=== PATIENT | female | born 1950 | race Caucasian/White ===

== ENCOUNTER 2020-04-21 08:56 | Outpatient (CLI) | payer MEDICARE, OTHER ==
--- NOTE | 2020-04-21 10:05 | SLEEP CARE CONSULTATION ---
Information from patient questionnaire entered by Emily Jordan. I have reviewed and concur with the information entered by Emily Jordan. This document represents the service I personally performed and the decisions made by , Crys Mack ARNP. History of Present Illness Service Date and Time: 04/21/2020 0856 Reason for Visit: New patient, Previously diagnosed sleep apnea, sleep apnea on CPAP therapy Chief Complaint: reports: Other (sleep apnea, transferring care and CPAP check) Usual bedtime: 10:30 pm Time it takes to fall asleep: 10-30 mins Snores at night: Yes Observed to quit breathing while asleep: Yes Number of times waking at night: 2-3 with CPAP Reasons for waking at night: reports: Gasping for air (if mask comes off), Bathroom Toss, Turn, or Twitch while sleeping: No Recalls having dreams: Yes Usually gets out of bed at: 6:30 am Feels refreshed in the morning: Yes (usually) Morning headache: No Sleepy or fatigued during the day: Yes (sometimes) Ever fallen asleep while driving: No Takes day naps: No Prior sleep studies: Yes Year and Where: 2011 - [facility] Additional HPI information: NARAYAN MARQUEZ was diagnosed to have unkown, AHI unknown, obstructive sleep apnea-hypopnea syndrome and returned today for CPAP therapy establishment of care. - Parasomnia Symptoms Ever been unable to move upon waking from sleep: No Walks in sleep: No Talks in sleep: No Ever acted out dreams in sleep: No Ever felt weak in the knees when startled or emotional: No Bothered by creepy, crawly, restless sensations in legs: No Problems with memory or concentration: No CPAP Compliance Data - Data Reviewed with Patient Average duration of nightly device use: 5 hours 9 minutes Compliance rate %: 80 Current pressure setting (cmH2O): 5-15 Average residual AHI: 3.1 Central apnea: 0.3 Obstructive apnea: 1.8 Average large leak: 21.6 L/min Compliance data discussion: She is getting equipment and supplies from [employer] as needed. She is using a full face mask and she last changed it out 1 week ago. She does have a backup mask. Subjective Patient concerns: reports: mask discomfort (some skin irritation from mask and drooling in mask). denies: aerophagia, air blowing in eyes, mask leak noise, condensation in mask/hose, nasal congestion, dry mouth, nose, throat, epistaxis, other Observed to snore while using device: No Current pressure setting perceived as: comfortable On therapy, patient: reports: sleeping better, awakening more refreshed, being more awake and alert during the day, more rested overall. denies: drowsiness while driving Initial [place] Sleepiness Scale score: 3 (in 2019) Past Medical History Past Medical History: reports: Arthritis, Hypothyroidism, Anemia, Other (sleep apnea, kidney disease, osteoporosis, hearing loss, celiac disease). 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 Patient is and lives in [place]. Have you smoked in the past 12 months: No Alcohol use: No Caffeine use: Yes Caffeine amount and frequency: 2 drinks a week, tea Family History Family history of sleep disordered breathing: Yes (father, son, daughter) Family Hx Sleep Apnea: Father: Snoring, Sleep apnea - Treated Allergies and Home Medications Drug allergies reviewed: Yes (Sulfa) Home medication list reviewed: Yes Allergy and home medication list: hydroxychloroquine 200 mg (2) methtrexate 2.5 mg (6 per week) Folic acid (1) probiotic Calcium/Vit D/Magnesium Thyroid 60 mg (1) Alendronate sodium 70 mg (1 week) Review of Systems Cardiovascular: denies: high blood pressure, irregular heart rate or pulse Respiratory: denies: shortness of breath Gastrointestinal: denies: heartburn, difficulty swallowing Neurological: denies: headaches Psychiatric: reports: claustrophobia. denies: anxiety, depression Ear/Nose/Throat: reports: wisdom teeth removed. denies: nasal congestion, sinus problems, nose bleeds, dry mouth/throat, injury to nose, tonsillectomy Endocrine: reports: thyroid disease Musculoskeletal: reports: joint pain, back pain Immunologic: reports: rash, itching, allergies to food or environment (gluten) Physical Exam Blood Pressure: 140/79 Cuff size: long Heart Rate: 79 O2 Saturation: 99 Height: 5 ft 5 in Weight: 168 lb Body Mass Index: 27.9 BMI Classification: Overweight Neck circumference: 14.45 (inches) Nostrils: patent to airflow Turbinates: swollen Septum: deviated left Mouth and throat: narrow oropharynx Uvula visualization: 50% Mallampati Class II Tongue: normal in size Tonsils: 2+ Chin and jaw: normal size and position Neck: normal w/o lymphadenopathy or thyromegaly Heart: regular rate and rhythm Lungs: clear bilaterally Impression and Plan 1. Obstructive Sleep Apnea-Hypopnea Syndrome, unknown, with good treatment compliance and good apnea control. On CPAP therapy, the patient has better sleep quality and is more rested overall. She just moved into area and needs to establish care for her CPAP therapy. We were able to download information from a SD card inserted into her machine and she is compliant in last 30 download. We need to obtain copy of her last sleep study to verify diagnosis and severity. She has been using pressure range 5-15 cmH2O according to her download which also shows that she is using median 8.8 cmH2O, 95% 13.1 cmH2O and max 14.4 cmH2O. Thus, I will adjust her pressure range to 9-14 to accommodate for her pressure usage. She has had some issues with skin irritation around her mouth from the mask. I advised her to obtain a mask liner for her full face mask to have a barrier between the mask and her skin to reduce irritation. She voiced understanding. Patient's apnea severity and rationale for treatment to reduce apnea, improve sleep quality and reduce cardiovascular and cerebrovascular events was reviewed. * Obtain last sleep study to verify diagnosis and severity * Change autoCPAP pressure to 9-14 cmH2O * Obtain mask liners to reduce skin irritation from the mask * Notify me if snoring with mask or feeling that the pressure is too much or too little * Attempt to lose weight * Call this office if any problems using CPAP * Return for follow up in 1-2 months, or sooner if concerns arise Counseling Topics: Spare mask, Weight loss health impact Visit Type: In Office Time Spent with Patient (minutes): 38 Provider Statement: I spent 100% of the Face to Face Visit with the patient with greater than 50% spent counseling the patient and coordination of care.
[2020-04-21 10:12] VITALS: BP 140/79
== END 2020-04-21 08:57 | disposition home or self-care (01) ==
LOC: SC 08:56
PROVIDERS: ATTEND Nurse Practitioner Family
DX: G47.33 Obstructive sleep apnea (adult) (pediatric) (principal)
CPT/HCPCS: 99204; 99212

== ENCOUNTER 2020-04-21 10:30 | Outpatient (CLI) | payer MEDICARE, OTHER ==
[2020-04-21 11:00] LABS: BASOPHILS % (AUTO) 0.7 %; EOSINOPHILS # (AUTO) 0.1 10^3/uL (0.0-0.7); EOSINOPHILS % (AUTO) 0.9 %; HGB - HEMOGLOBIN 12.7 g/dL (12.0-16.0); LYMPHOCYTES # (AUTO) 1.3 10^3/uL (1.5-3.5); LYMPHOCYTES % (AUTO) 22.9 %; MEAN CORPUSCULAR HGB CONC 31.8 g/dL (32.0-36.0); MEAN CORPUSCULAR VOLUME 94.3 fL (81.0-99.0); MEAN PLATELET VOLUME 10.5 fL (7.9-10.8); MONOCYTES # (AUTO) 0.5 10^3/uL (0.0-1.0); MONOCYTES % (AUTO) 9.3 %; NEUTROPHILS # (AUTO) 3.7 10^3/uL (1.5-6.6); PLT - PLATELET COUNT 237 10^3/uL (130-450); RED BLOOD COUNT 4.24 10^6/uL (4.20-5.40); WHITE BLOOD COUNT 5.7 x10^3/uL (4.8-10.8)
[2020-04-21 11:18] LABS: ALBUMIN 4.4 g/dL (3.2-5.5); ALBUMIN/GLOBULIN RATIO 1.4 (1.0-2.2); ALKALINE PHOSPHATASE 49 IU/L (42-121); ALT ALANINE AMINOTRANSFERASE 19 IU/L (10-60); AST ASPARTATE AMINOTRANSFERASE 18 IU/L (10-42); BILIRUBIN,TOTAL 0.6 mg/dL (0.2-1.0); BUN - BLOOD UREA NITROGEN 21 mg/dL (6-20); CALCIUM 9.3 mg/dL (8.5-10.3); CARBON DIOXIDE - CO2 26 mmol/L (21-32); CHLORIDE 100 mmol/L (101-111); CREATININE 1.4 mg/dL (0.4-1.0); GLUCOSE 138 mg/dL (70-100); SODIUM 136 mmol/L (135-145); TOTAL PROTEIN 7.5 g/dL (6.7-8.2)
[2020-04-21 11:25] LABS: CRP - C-REACTIVE PROTEIN < 1.0 mg/dL (0-1.0)
== END 2020-04-21 10:31 | disposition home or self-care (01) ==
LOC: LAB 10:30
PROVIDERS: ATTEND Nurse Practitioner
DX: Q60.0 Renal agenesis, unilateral (principal); N28.9 Disorder of kidney and ureter, unspecified; E03.9 Hypothyroidism, unspecified; M06.9 Rheumatoid arthritis, unspecified; Z79.899 Other long term (current) drug therapy
CPT/HCPCS: 36415; 80053; 84443; 85025; 85651; 86140

== ENCOUNTER 2020-04-21 11:00 | Outpatient (CLI) | payer MEDICARE, OTHER ==
--- NOTE | 2020-04-21 11:33 | XRAY Report ---
PROCEDURE: Foot 2 View BILAT INDICATIONS: RHEUMATOID ARTHRITIS BILAT FOOT PAIN TECHNIQUE: 2 views of both feet were obtained. COMPARISON: None FINDINGS: Bones: Both feet demonstrate no fracture or dislocation. There are no erosions or proliferative blevins es. The interphalangeal joints have mild joint space narrowing consistent with degenerative changes. Soft tissues: No tibiotalar joint effusion. Achilles tendon appears normal. IMPRESSION: No radiographic evidence of inflammatory arthropathy. Reviewed by: Pierre Muñoz on 04/21/2020 11:32 AM [facility] Approved by: Pierre Muñoz on 04/21/2020 11:32 AM [facility] Station ID: [id number]
--- NOTE | 2020-04-21 11:45 | XRAY Report ---
PROCEDURE: Hand 2 View BILAT INDICATIONS: RHEUMATOID ARTHRITIS/BILAT HAND PAIN TECHNIQUE: 2 views of both hands were obtained. COMPARISON: None FINDINGS: Bones: Both hands demonstrate joint space narrowing of the metacarpophalangeal joints, interphalangea l joints most severe in the proximal interphalangeal joints. There is subchondral sclerosis and chelsea nal erosions at multiple DIP joints bilaterally. The thumb carpometacarpal joints and the thumb inter phalangeal joint have degenerative changes, worse on the right. Soft tissues: No suspicious soft tissue calcifications. IMPRESSION: Arthropathy prominently involving the interphalangeal joints in a distribution most consi stent with erosive osteoarthritis or psoriatic arthritis. Marginal erosions suggest psoriatic arthrit is. Reviewed by: Pierre Muñoz on 04/21/2020 11:43 AM [facility] Approved by: Pierre Muñoz on 04/21/2020 11:43 AM [facility] Station ID: [id number]
== END 2020-04-21 11:01 | disposition home or self-care (01) ==
LOC: DI 11:00
PROVIDERS: ATTEND Internal Medicine Rheumatology
DX: M79.672 Pain in left foot (principal); M79.671 Pain in right foot; M06.9 Rheumatoid arthritis, unspecified; M19.041 Primary osteoarthritis, right hand; M19.042 Primary osteoarthritis, left hand; Q60.0 Renal agenesis, unilateral; N28.9 Disorder of kidney and ureter, unspecified; E03.9 Hypothyroidism, unspecified; Z79.899 Other long term (current) drug therapy; G47.33 Obstructive sleep apnea (adult) (pediatric)
CPT/HCPCS: 36415; 73120; 73620; 80053; 84443; 85025; 85651; 86140; 99204; G0463; 99212

== ENCOUNTER 2020-04-29 07:45 | Outpatient (CLI) | payer MEDICARE, OTHER ==
--- NOTE | 2020-04-29 14:05 | Ultrasound Report ---
PROCEDURE: Retroperitoneal INDICATIONS: SINGLE KIDNEY, RENAL INSUFFICIENCY, history of right nephrectomy 2 years ago. TECHNIQUE: Real-time scanning was performed of the retroperitoneal organs, with image documentation. COMPARISON: None. FINDINGS: Kidneys: Solitary left kidney measures 12 cm. Cortex 1.2 cm.. No hydronephrosis. There is a nonobstru cting calculus at the mid pole measuring 5 mm. Small simple cyst at the inferior pole measuring 0.9 c m. No mass in the region of the right nephrectomy bed is seen. Bladder: Volume 12 cc. Post void residual of 0 cc. Left ureteral jet is seen. IMPRESSION: 1. No hydronephrosis of the left kidney. Nonobstructing left kidney stone measuring 5 mm. 2. No obvious mass in the right nephrectomy bed. Reviewed by: Rodolfo Viveros MD on 04/29/2020 1:04 PM [facility] Approved by: Rodolfo Viveros MD on 04/29/2020 1:04 PM [facility] Station ID: [id number]
== END 2020-04-29 07:46 | disposition home or self-care (01) ==
LOC: DI 07:45
PROVIDERS: ATTEND Nurse Practitioner
DX: N20.0 Calculus of kidney (principal); N28.9 Disorder of kidney and ureter, unspecified; Q60.0 Renal agenesis, unilateral

== ENCOUNTER 2020-05-23 08:21 | Outpatient (CLI) | payer MEDICARE, OTHER ==
--- NOTE | 2020-05-23 08:55 | SLEEP CARE CONSULTATION ---
Information from patient questionnaire entered by Emily Jordan. I have reviewed and concur with the information entered by Emily Jordan. This document represents the service I personally performed and the decisions made by , Crys Mack ARNP. History of Present Illness Service Date and Time: 05/23/2020 08 Previous diagnosis: Severe, Obstructive Sleep Apnea-Hypopnea Syndrome AHI: 38.7 (in 2018) Reason for follow up: one month (with pressure change) Equipment type: CPAP Equipment obtained from: [employer] [facility] Mask style: Full face Backup mask available: Yes (old mask) Last cushion change: 12 days ago Prior sleep studies: Yes Year and Where: 2011 [facility] Type of Sleep Study: Home sleep study HPI additional information: NARAYAN MARQUEZ was diagnosed to have severe, AHI 38.7, obstructive sleep apnea- hypopnea syndrome and returned today for CPAP therapy one month pressure change follow-up. CPAP Compliance Data - Data Reviewed with Patient Average duration of nightly device use: 5 hr 38 min Compliance rate %: 90 Current pressure setting (cmH2O): 9-14 Humidity settin Average residual AHI: 8.0 Central apnea: 0.4 Obstructive apnea: 5.9 Subjective Patient concerns: denies: aerophagia, mask discomfort, air blowing in eyes, mask leak noise, condensation in mask/hose, nasal congestion, dry mouth, nose, throat, epistaxis, other Observed to snore while using device: No Current pressure setting perceived as: comfortable On therapy, patient: reports: sleeping better, awakening more refreshed, being more awake and alert during the day, more rested overall. denies: drowsiness while driving Initial [place] Sleepiness Scale score: 3 (in 2019) Current [place] Sleepiness Scale score: 1 Allergies and Home Medications Drug allergies reviewed: Yes (sulfa) Home medication list reviewed: Yes (off the methotrexate) Review of Systems Review of systems same as previous: Yes (no changes) Physical Exam Heart Rate: 77 O2 Saturation: 99 Height: 5 ft 5 in Weight: 172 lb Body Mass Index: 28.6 BMI Classification: Overweight Impression and Plan 1. Obstructive Sleep Apnea-Hypopnea Syndrome, severe, with good treatment compliance and fair apnea control with an elevated residual AHI. On CPAP therapy, the patient has better sleep quality and is more rested overall. She has found the mask liners to reduce the skin irritation and she is now doing well with the mask. She has no other concerns about use of her machine. She has some elevated residual AHI with last change of pressure. The patients pressure will be changed to autoCPAP 11-15 cmH20 For elevation of residual AHI. Patient advised to contact me if pressure change is uncomfortable so that it can be adjusted. Goals for apnea control discussed. Patient also commented that she has gained 4-5 pounds over the holidays and she was encouraged to find ways to lose them. She states she went back to work where she cannot snack as much and will easily take these pounds back off. Patient's apnea severity and rationale for treatment to reduce apnea, improve sleep quality and reduce cardiovascular and cerebrovascular events was reviewed. * Change auto CPAP pressure to 11-15 cmH2O * Notify me if snoring with mask or feeling that the pressure is too much or too little * Attempt to lose weight * Call this office if any problems using CPAP * Return for follow up in 1-2 months , or sooner if concerns arise Counseling Topics: Spare mask, Weight loss health impact Visit Type: In Office Time Spent with Patient (minutes): 19 Provider Statement: I spent 100% of the Face to Face Visit with the patient with greater than 50% spent counseling the patient and coordination of care.
== END 2020-05-23 08:22 | disposition home or self-care (01) ==
LOC: SC 08:21
PROVIDERS: ATTEND Nurse Practitioner Family
DX: G47.33 Obstructive sleep apnea (adult) (pediatric) (principal); E66.3 Overweight; Z68.28 Body mass index [BMI] 28.0-28.9, adult
CPT/HCPCS: 99213; G0463; 99212

== ENCOUNTER 2020-06-16 14:44 | Outpatient (CLI) | payer MEDICARE, OTHER ==
--- NOTE | 2020-06-27 12:47 | Mammography Report ---
BILATERAL DIGITAL SCREENING MAMMOGRAM 3D/2D: 06/16/2020 CLINICAL: Routine screening. No prior exams were available for comparison. The tissue of both breasts is extremely dense, which l owers the sensitivity of mammography. There are benign vascular calcifications in both breasts. No significant masses, calcifications, or other findings are seen in either breast. IMPRESSION: BENIGN There is no mammographic evidence of malignancy. A 1 year screening mammogram is recommended. This exam was interpreted at Station ID: [id number]. NOTE: For mammograms, a report in lay terms will be sent to the patient. Approximately 15% of breast malignancies will not be visualized mammographically. In the management of a palpable breast mass, a negative mammogram must not discourage biopsy of a clinically suspicious lesion. Electronically Signed By: Zay Cunningham M.D. ddp/marilin:06/26/2020 14:35:15 ACR BI-RADS Category 2: Benign Finding(s) 3342F PARENCHYMAL PATTERN: (VD) - The breast(s) demonstrate(s) extremely dense parenchyma, limiting the sen sitivity of mammography. BI-RADS CATEGORY: (2) - 2 RECOMMENDATION: (ANNUAL) - Recommend routine annual screening mammography. [id number] 1 year screening LATERALITY: (B)
== END 2020-06-16 14:45 | disposition home or self-care (01) ==
LOC: DI 14:44
PROVIDERS: ATTEND Nurse Practitioner
DX: Z12.31 Encounter for screening mammogram for malignant neoplasm of breast (principal)

== ENCOUNTER 2020-07-28 08:03 | Outpatient (CLI) | payer MEDICARE, OTHER ==
--- NOTE | 2020-07-28 08:30 | SLEEP CARE CONSULTATION ---
Information from patient questionnaire entered by Bessie Thao. I have reviewed and concur with the information entered by Bessie Thao. This document represents the service I personally performed and the decisions made by me, Crys Mack ARNP. History of Present Illness Service Date and Time: 07/28/2020 0803 Previous diagnosis: Severe, Obstructive Sleep Apnea-Hypopnea Syndrome AHI: 38.7 Reason for follow up: other (2-month followup - pressure change) Equipment type: CPAP Equipment obtained from: [facility] ([facility]; getting supplies as needed) Mask style: Full face Backup mask available: Yes (old mask) Prior sleep studies: Yes Year and Where: 2011 [facility] Type of Sleep Study: Home sleep study HPI additional information: NARAYAN MARQUEZ was diagnosed to have severe, AHI 38.7, obstructive sleep apnea- hypopnea syndrome and returned today for CPAP therapy 2 month pressure change follow-up. CPAP Compliance Data - Data Reviewed with Patient Average duration of nightly device use: 5 h 14 min Compliance rate %: 82 Current pressure setting (cmH2O): 11-15 Average residual AHI: 4.5 Central apnea: 0.4 Obstructive apnea: 2.6 Subjective Patient concerns: denies: aerophagia, mask discomfort, air blowing in eyes, mask leak noise, condensation in mask/hose, nasal congestion, dry mouth, nose, throat, epistaxis, other Observed to snore while using device: No (not as far as she knows) Current pressure setting perceived as: comfortable On therapy, patient: reports: sleeping better, awakening more refreshed, being more awake and alert during the day, more rested overall. denies: drowsiness while driving Initial [place] Sleepiness Scale score: 3 (in 2019) Current [place] Sleepiness Scale score: 5 Allergies and Home Medications Home medication list reviewed: Yes (no new meds, stopped methotrexate) Review of Systems Review of systems same as previous: Yes (no changes) Physical Exam Heart Rate: 70 O2 Saturation: 100 Height: 5 ft 5 in Weight: 169 lb Body Mass Index: 28.1 BMI Classification: Overweight Impression and Plan 1. Obstructive Sleep Apnea-Hypopnea Syndrome, severe, with good treatment compliance and good apnea control. On CPAP therapy, the patient has better sleep quality and is more rested overall. She is happy with pressure change, it is comfortable and she feels rested after sleeping. She is very happy with the mask liners she is using because she no longer has rashes or skin irritation from wearing her mask. We will have her follow up next year, sooner if any issues arise. She voiced understanding and agreement. Patient's apnea severity and rationale for treatment to reduce apnea, improve sleep quality and reduce cardiovascular and cerebrovascular events was reviewed. * Continue autoCPAP pressure at 11-15 cmH2O * Notify me if snoring with mask or feeling that the pressure is too much or too little * Attempt to lose weight * Call this office if any problems using CPAP * Return for follow up in 1 year, or sooner if concerns arise Counseling Topics: Spare mask, Weight loss health impact Visit Type: In Office Time Spent with Patient (minutes): 12 Provider Statement: I spent 100% of the Face to Face Visit with the patient with greater than 50% spent counseling the patient and coordination of care.
== END 2020-07-28 08:04 | disposition home or self-care (01) ==
LOC: SC 08:03
PROVIDERS: ATTEND Nurse Practitioner Family
DX: G47.33 Obstructive sleep apnea (adult) (pediatric) (principal); E66.3 Overweight; Z68.28 Body mass index [BMI] 28.0-28.9, adult
CPT/HCPCS: 99212; G0463

== ENCOUNTER 2021-03-02 09:53 | Outpatient (CLI) | payer MEDICARE, OTHER ==
[2021-03-02 10:32] LABS: BASOPHILS % (AUTO) 0.8 %; EOSINOPHILS # (AUTO) 0.1 10^3/uL (0.0-0.7); EOSINOPHILS % (AUTO) 1.4 %; HGB - HEMOGLOBIN 13.2 g/dL (12.0-16.0); LYMPHOCYTES # (AUTO) 1.5 10^3/uL (1.5-3.5); MEAN CORPUSCULAR HEMOGLOBIN 28.3 pg (27.0-31.0); MEAN CORPUSCULAR HGB CONC 31.4 g/dL (32.0-36.0); MEAN CORPUSCULAR VOLUME 90.1 fL (81.0-99.0); MEAN PLATELET VOLUME 10.5 fL (7.9-10.8); MONOCYTES # (AUTO) 0.5 10^3/uL (0.0-1.0); MONOCYTES % (AUTO) 9.4 %; NEUTROPHILS % (AUTO) 59.2 %; PLT - PLATELET COUNT 226 10^3/uL (130-450); RED BLOOD COUNT 4.66 10^6/uL (4.20-5.40); RED CELL DISTRIBUTION WIDTH 13.5 % (12.0-15.0); WHITE BLOOD COUNT 5.1 x10^3/uL (4.8-10.8)
[2021-03-02 10:54] LABS: ALBUMIN 4.4 g/dL (3.2-5.5); ALBUMIN/GLOBULIN RATIO 1.5 (1.0-2.2); ALKALINE PHOSPHATASE 44 IU/L (42-121); ALT ALANINE AMINOTRANSFERASE 16 IU/L (10-60); AST ASPARTATE AMINOTRANSFERASE 21 IU/L (10-42); BILIRUBIN,TOTAL 0.6 mg/dL (0.2-1.0); BUN - BLOOD UREA NITROGEN 26 mg/dL (6-20); CALCIUM 9.6 mg/dL (8.5-10.3); CARBON DIOXIDE - CO2 28 mmol/L (21-32); CHLORIDE 104 mmol/L (101-111); CHOL/HDL RATIO 3.1 (<4.4); CHOLESTEROL 180 mg/dL; CREATININE 1.5 mg/dL (0.4-1.0); GFR - MDRD 35 (>89); GLUCOSE 111 mg/dL (70-100); HDL CHOLESTEROL 59 mg/dL; LDL CHOLESTEROL,CALCULATED 112 mg/dL; LDL/HDL RATIO 1.9 (<4.4); POTASSIUM 4.2 mmol/L (3.5-5.0); SODIUM 141 mmol/L (135-145); TOTAL PROTEIN 7.4 g/dL (6.7-8.2); TRIGLYCERIDES 45 mg/dL; VLDL CHOLESTEROL 9 mg/dL
[2021-03-02 11:02] LABS: T4 (THYROXINE) 12.74 ug/dL (6.09-12.23)
[2021-03-02 11:06] LABS: THYROID STIMULATING HORMONE 0.51 uIU/mL (0.34-5.60)
== END 2021-03-02 09:54 | disposition home or self-care (01) ==
LOC: LAB 09:53
PROVIDERS: ATTEND Registered Nurse
DX: G47.30 Sleep apnea, unspecified (principal); Z79.899 Other long term (current) drug therapy; N28.9 Disorder of kidney and ureter, unspecified; E03.9 Hypothyroidism, unspecified; M06.9 Rheumatoid arthritis, unspecified
CPT/HCPCS: 36415; 80053; 80061; 83721; 84436; 84443; 84480; 85025

== ENCOUNTER 2021-03-21 07:04 | Outpatient (CLI) | payer MEDICARE, OTHER ==
[2021-03-21 21:21] LABS: BACTERIAL VAGINOSIS DNA NEGATIVE (NEGATIVE); CANDIDA GLABRATA DNA NEGATIVE (NEGATIVE); CANDIDA GROUP DNA NEGATIVE (NEGATIVE); CANDIDA KRUSEI DNA NEGATIVE (NEGATIVE); TRICHOMONAS VAGINALIS DNA NEGATIVE (NEGATIVE)
== END 2021-03-21 23:59 | disposition home or self-care (01) ==
LOC: LAB.N 07:04
PROVIDERS: ATTEND Physician Assistant Medical
DX: R39.9 Unspecified symptoms and signs involving the genitourinary system (principal)
CPT/HCPCS: 87086; 87661; 87801

== ENCOUNTER 2021-04-25 06:43 | Outpatient (CLI) | payer MEDICARE, OTHER ==
--- NOTE | 2021-04-25 11:02 | Ultrasound Report ---
PROCEDURE: Retroperitoneal INDICATIONS: SINGLE KIDNEY, RECURRENT KIDNEY STONES, RENAL INSU TECHNIQUE: Real-time scanning was performed of the retroperitoneal organs, with image documentation. COMPARISON: 04/29/2020. FINDINGS: Kidneys: Right kidney is surgically absent. Left kidney measures 11.8 cm long. Right renal cortical thickness is cm; LEFT renal cortical thickness is 1.0 cm. Mild left-sided hydronephrosis. No yahir id masses or nephrolithiasis. 0.7-0 0.7 x 0.6 and 0.8 x 0.7 x 0.6 cm simple cyst noted in the inferi or pole of the left kidney. Bladder: Pre-void bladder volume is 106 mL. Post-void residual is 6 mL. Pre-void images demonstrat e no intraluminal masses or stones. On pre-void images, left ureteral jet is noted with color Dopple r interrogation. (Of note, ureteral jets may not be detectable in up to 25% of cases due to insuffic ient differences in specific gravity between ureteral and bladder urine). Miscellaneous: No free pelvic fluid. IMPRESSION: 1. Status post right nephrectomy. 2. Mild left-sided hydronephrosis. Reviewed by: Ayala Luna MD, PhD on 04/25/2021 11:00 AM PST Approved by: Ayala Luna MD, PhD on 04/25/2021 11:00 AM PST Station ID: [id number]
== END 2021-04-25 06:44 | disposition home or self-care (01) ==
LOC: DI 06:43
PROVIDERS: ATTEND Registered Nurse
DX: N13.2 Hydronephrosis with renal and ureteral calculous obstruction (principal); Z87.442 Personal history of urinary calculi; Z90.5 Acquired absence of kidney; E03.9 Hypothyroidism, unspecified
CPT/HCPCS: 36415; 84443

== ENCOUNTER 2021-04-25 07:32 | Outpatient (CLI) | payer MEDICARE, OTHER | END 2021-04-25 07:33 | disposition home or self-care (01) | LOC: LAB 07:32 | PROVIDERS: ATTEND Registered Nurse | DX: E03.9 Hypothyroidism, unspecified (principal) | CPT/HCPCS: 36415; 84443 ==

== ENCOUNTER 2021-05-19 07:45 | Outpatient (CLI) | payer MEDICARE, OTHER ==
--- NOTE | 2021-05-19 08:46 | CT Report ---
PROCEDURE: Abdomen/Pelvis WO INDICATIONS: HYDRONEPHROSIS, HX OF NEPHROLITHIASIS, 1 KIDNEY TECHNIQUE: Noncontrast 5 mm thick sections acquired from the diaphragms to the symphysis. 5 mm coronal and sagi ttal reformats were then performed. For radiation dose reduction, the following was used: automated exposure control, adjustment of mA and/or kV according to patient size. COMPARISON: Limited comparison with ultrasound dated 04/25/2020 oh FINDINGS: Image quality: Excellent. ABDOMEN: Lung bases: Mild basilar atelectasis. Heart size is normal. Dense mitral annular calcifications. No p ericardial effusion. Solid organs: Liver and spleen are normal in size. Gallbladder demonstrates layering density within the gallbladder fundus. Common bile duct appears normal in caliber. Pancreas is normal in contours. No adrenal nodules. Kidneys/Ureters: Patient is status post right nephrectomy. The left kidney is unremarkable in noncon trast appearance. There is mild pelviectasis. No significant calyceal dilation. Bladder is only mildl y distended limiting evaluation. There is no urinary tract calcifications identified. Peritoneum and bowel: Unenhanced bowel loops demonstrate normal wall thickness and caliber. No free fluid or air. Nodes and vessels: No retroperitoneal or mesenteric adenopathy by size criteria. Aorta and inferior vena cava are normal in caliber. Diffuse vascular calcification throughout the abdominal and pelvic vasculature. Miscellaneous: No ventral hernias. Mild rectus diastases. Intraosseous hemangioma noted at T10. Mul tiple levels of Schmorl's nodes. Age-appropriate degenerative changes in the spine and hips. PELVIS: Genitourinary: Bladder wall thickness is normal. Miscellaneous: No inguinal hernias or adenopathy. Bones: No suspicious bony lesions. No vertebral body compression fractures. IMPRESSION: No urinary tract calcifications. Mild left pelviectasis. Status post right nephrectomy. Reviewed by: Yonathan Abernathy DO on 05/19/2021 7:45 AM [facility] Approved by: Yonathan Abernathy DO on 05/19/2021 7:45 AM [facility] Station ID: [id number]
== END 2021-05-19 07:46 | disposition home or self-care (01) ==
LOC: DI 07:45
PROVIDERS: ATTEND Urology
DX: N13.30 Unspecified hydronephrosis (principal); Z87.442 Personal history of urinary calculi; Z90.5 Acquired absence of kidney

== ENCOUNTER 2021-06-29 07:26 | Day surgery (SDC) | payer MEDICARE, OTHER ==
[2021-06-29] MEDS ORDERED: LACTATED RINGERS 1,000 ML IV ONE (07:31)
[2021-06-29] MEDS ORDERED: PROPOFOL 500 MG/50 ML 500 MG/50 ML VIAL ONE (07:56)
--- NOTE | 2021-06-29 08:01 | ANESTHESIA ---
Pre-Anesthesia VS, & Labs - Diagnosis colon polyps - Procedure colonoscopy Vital Signs: Temp Pulse Resp BP Pulse Ox 36 C L 74 18 152/81 H 100 06/29/21 07:32 06/29/21 07:32 06/29/21 07:32 06/29/21 07:32 06/29/21 07:32 Height: 55 ft Weight (kg): 76 kg Body Mass Index: 0.2 BMI Classification: Underweight - NPO >8 hours - Is Patient ?: No Home Medications and Allergies Home Medications: Ambulatory Orders Hydroxychloroquine [Plaquenil] 400 mg PO DAILY 06/28/21 Levothyroxine [Synthroid] 88 mcg PO QDAC 06/28/21 Hydroxychloroquine [Plaquenil] 400 mg PO DAILY 06/28/21 Levothyroxine [Synthroid] 88 mcg PO QDAC 06/28/21 Allergies/Adverse Reactions: Allergies Allergy/AdvReac Type Severity Reaction Status Date / Time Sulfa (Sulfonamide Allergy Verified 04/21/20 09:20 Antibiotics) Anes History & Medical History - Anesthetic History Anesthesia Complications: reports: No previous complications - Medical History Cardiovascular: reports: None Pulmonary: reports: None Gastrointestinal: reports: Colon polyps Urinary: reports: Other Musculoskeletal: reports: Rheumatoid arthritis Smoking Status: Never smoker History of Cancer?: No - Surgical History General: reports: Colonoscopy Urologic: reports: Kidney stents, Nephrectomy Gynecologic: reports: section Exam General: Alert Dental: WNL Mouth Opening: Greater than 4 Fingerbreadths Mallampati classification: II Thyromental Distance: greater than 6 cm Respiratory: Lungs clear Cardiovascular: Regular rate Plan Anesthesia Type: Total IV Consent for Procedure(s) Verified and Reviewed: Yes Code Status: Attempt Resuscitation ASA classification: 2-Mild systemic disease Is this case an emergency?: No
[2021-06-29] MEDS ORDERED: PROPOFOL 200 MG/20 ML VIAL IVP ONE (09:15)
[2021-06-29] MEDS ORDERED: LACTATED RINGERS 300 ML IV ONE (09:17)
[2021-06-29 09:32] VITALS: BP 123/77
--- NOTE | 2021-06-29 10:21 | ANESTHESIA POST OP EVALUATION ---
Anesthesia Post Eval - Post Anesthesia Eval Vitals: Last Vital Signs Temp 36 C L 06/29/21 09:31 Pulse 70 06/29/21 09:31 Resp 16 06/29/21 09:31 BP 123/77 06/29/21 09:31 Pulse Ox 100 06/29/21 09:31 CV Function Including HR & BP: Stable Pain Control: Satisfactory Nausea & Vomiting: Negative Mental Status: Baseline Respiratory Status: Airway Patent Hydration Status: Satisfactory Anesthesia Complications: None
== END 2021-06-29 07:27 | disposition home or self-care (01) ==
LOC: SDS 07:26
PROVIDERS: ATTEND Surgery
PROC: 0DBL8ZX Excision of Transverse Colon, Via Natural or Artificial Opening Endoscopic, Diagnostic (ICD-10-PCS; 2021-06-29)
PROC: 0DBN8ZX Excision of Sigmoid Colon, Via Natural or Artificial Opening Endoscopic, Diagnostic (ICD-10-PCS; principal; 2021-06-29 08:30)
DX: Z86.010 Personal history of colon polyps (principal); D12.5 Benign neoplasm of sigmoid colon; K57.30 Diverticulosis of large intestine without perforation or abscess without bleeding; K63.89 Other specified diseases of intestine; K90.0 Celiac disease; G47.33 Obstructive sleep apnea (adult) (pediatric)
CPT/HCPCS: 45380; J7120

== ENCOUNTER 2021-07-11 10:08 | Outpatient (CLI) | payer MEDICARE, OTHER ==
[2021-07-11 10:25] LABS: BASOPHILS % (AUTO) 0.7 %; EOSINOPHILS # (AUTO) 0.1 10^3/uL (0.0-0.7); EOSINOPHILS % (AUTO) 1.5 %; HCT - HEMATOCRIT 41.4 % (37.0-47.0); HGB - HEMOGLOBIN 13.4 g/dL (12.0-16.0); LYMPHOCYTES # (AUTO) 1.5 10^3/uL (1.5-3.5); LYMPHOCYTES % (AUTO) 24.9 %; MEAN CORPUSCULAR HEMOGLOBIN 28.1 pg (27.0-31.0); MEAN CORPUSCULAR HGB CONC 32.4 g/dL (32.0-36.0); MEAN CORPUSCULAR VOLUME 86.8 fL (81.0-99.0); MEAN PLATELET VOLUME 10.8 fL (7.9-10.8); MONOCYTES # (AUTO) 0.7 10^3/uL (0.0-1.0); MONOCYTES % (AUTO) 10.9 %; NEUTROPHILS # (AUTO) 3.8 10^3/uL (1.5-6.6); NEUTROPHILS % (AUTO) 61.8 %; PLT - PLATELET COUNT 229 10^3/uL (130-450); RED BLOOD COUNT 4.77 10^6/uL (4.20-5.40); RED CELL DISTRIBUTION WIDTH 13.2 % (12.0-15.0); WHITE BLOOD COUNT 6.1 x10^3/uL (4.8-10.8)
[2021-07-11 10:40] LABS: ALBUMIN 4.3 g/dL (3.2-5.5); ALBUMIN/GLOBULIN RATIO 1.3 (1.0-2.2); BILIRUBIN,TOTAL 0.6 mg/dL (0.2-1.0); CALCIUM 9.6 mg/dL (8.5-10.3); CREATININE 1.5 mg/dL (0.4-1.0); PHOSPHORUS 3.7 mg/dL (2.5-4.6); POTASSIUM 4.5 mmol/L (3.5-5.0); TOTAL PROTEIN 7.5 g/dL (6.7-8.2)
== END 2021-07-11 10:09 | disposition home or self-care (01) ==
LOC: LAB 10:08
PROVIDERS: ATTEND Internal Medicine Nephrology
DX: N18.32 Chronic kidney disease, stage 3b (principal)
CPT/HCPCS: 36415; 80053; 81001; 82043; 82570; 84100; 85025; 87086

== ENCOUNTER 2021-07-12 07:51 | Outpatient (CLI) | payer MEDICARE, OTHER ==
[2021-07-12 08:16] LABS: BILIRUBIN,URINE NEGATIVE (NEGATIVE); GLUCOSE, URINE (UA) NEGATIVE (NEGATIVE); KETONES,URINE (UA) NEGATIVE (NEGATIVE); LEUKOCYTE ESTERASE, URINE NEGATIVE (NEGATIVE); NITRITE,URINE NEGATIVE (NEGATIVE); OCCULT BLOOD,URINE NEGATIVE (NEGATIVE); PROTEIN,URINE NEGATIVE (NEGATIVE); UROBILINOGEN,URINE 0.2 (NORMAL) E.U./dL (NORMAL)
[2021-07-12 08:25] LABS: CREATININE,URINE 20.5 mg/dL; MICROALBUM/CREATININE RATIO,UR 24.4 ug/mg (<30.0); MICROALBUMIN,URINE 0.5 mg/dL (0-300.0)
[2021-07-12 08:42] LABS: CLARITY,URINE CLEAR (CLEAR); RBC,URINE N /HPF (0-5); SQUAMOUS EPITHELIAL CELL,UR FEW Squamous (<= Few); WBC,URINE 0-3 /HPF (0-5)
[2021-07-12 08:43] LABS: BACTERIA,URINE None Seen /HPF (None Seen)
== END 2021-07-12 07:52 | disposition home or self-care (01) ==
LOC: LAB 07:51
PROVIDERS: ATTEND Internal Medicine Nephrology
DX: N18.32 Chronic kidney disease, stage 3b (principal)
CPT/HCPCS: 81001; 82043; 82570; 87086

== ENCOUNTER 2021-08-22 08:13 | Outpatient (CLI) | payer MEDICARE, OTHER ==
--- NOTE | 2021-08-22 12:55 | DEXA Report ---
PROCEDURE: Dexa Spine and/or Hip INDICATIONS: OSTEOPOROSIS TECHNIQUE: Dual energy x-ray absorptiometry (DXA) was performed on a [employer] System. Regions measur ed are the AP Spine, femoral neck, and if needed forearm. COMPARISON: None. FINDINGS: Lumbar Spine: Bone Mineral Density 0.953 g/cm/cm,T score -1.9, osteopenia Left Hip: Bone Mineral Density 0.762 g/cm/cm,T score -2.0, osteopenia Left Femoral Neck: Bone Mineral Density 0.677 g/cm/cm, T score -2.6, osteoporosis. (T score greater or equal to -1.0: NORMAL) (T score from -1.1 to -2.4: OSTEOPENIA) (T score less than or equal to -2.5 to: OSTEOPOROSIS) Impression: Osteoporosis. Patients with diagnosis of osteoporosis or osteopenia should have regular bone mineral density assess ment. For those eligible for Medicare, routine testing is allowed once every 2 years. Testing frequ ency can be increased for patients who have rapidly progressing disease or for those who are receivin g medical therapy to restore bone mass. Reviewed by: Ayala Luna MD, PhD on 08/22/2021 12:54 PM PDT Approved by: Ayala Luna MD, PhD on 08/22/2021 12:54 PM PDT Station ID: [id number]
== END 2021-08-22 08:14 | disposition home or self-care (01) ==
LOC: DI 08:13
PROVIDERS: ATTEND Internal Medicine Rheumatology
DX: M81.0 Age-related osteoporosis without current pathological fracture (principal)

== ENCOUNTER 2021-08-31 09:08 | Outpatient (CLI) | payer MEDICARE, OTHER ==
[2021-08-31 09:37] VITALS: BP 151/88
--- NOTE | 2021-08-31 09:37 | SLEEP CARE CONSULTATION ---
Information from patient questionnaire entered by Rick Michaud MA. I have reviewed and concur with the information entered by Rick Michaud MA. This document represents the service I personally performed and the decisions made by , Crys Mack ARNP. History of Present Illness Service Date and Time: 08/31/2021 0908 Previous diagnosis: Severe, Obstructive Sleep Apnea-Hypopnea Syndrome AHI: 38.7 Reason for follow up: annual (LAST SEEN 07/2020) Equipment type: CPAP Equipment obtained from: [employer] (Ar; getting supplies as needed) Mask style: Full face Mask brand: Resmed (AirFit F20) Backup mask available: Yes (old mask) Last cushion change: 1 month Prior sleep studies: Yes Year and Where: 2011 [facility] Type of Sleep Study: Home sleep study HPI additional information: NARAYAN MARQUEZ was diagnosed to have severe, AHI 38.7, obstructive sleep apnea- hypopnea syndrome and returned today for CPAP therapy annual follow-up Sleep Study - Results Type of Sleep Study: Home sleep study Prior sleep studies: Yes Year and Where: [address] [place] [address] CPAP Compliance Data - Data Reviewed with Patient Average duration of nightly device use: 5 HOURS 46 MINUTES Compliance rate %: 84 (180 days) Current pressure setting (cmH2O): 11-15 Average residual AHI: 3.2 Central apnea: .4 Obstructive apnea: 1.0 Average large leak: 38.0 Subjective Patient concerns: reports: dry mouth, nose, throat (occasionally, janine with allergy season). denies: aerophagia, mask discomfort, air blowing in eyes, mask leak noise, condensation in mask/hose, nasal congestion, epistaxis, other Observed to snore while using device: No Current pressure setting perceived as: comfortable On therapy, patient: reports: sleeping better, awakening more refreshed, being more awake and alert during the day, more rested overall, other (Limited sleep for the last week has increased daytime fatigue). denies: drowsiness while driving Initial [place] Sleepiness Scale score: 3 (in 2019) Current [place] Sleepiness Scale score: 14 (2021) Allergies and Home Medications Home medication list reviewed: Yes (no changes) Allergy and home medication list: Allergies Sulfa (Sulfonamide Antibiotics) Allergy (Verified 12/11/20 09:20) Review of Systems Review of systems same as previous: Yes (no change) Physical Exam Vital signs obtained and entered by: Dayanara MICHAUD CMA YON Blood Pressure: 151/88 (RESP 16, PULSE 82, RIGHT, ) Cuff size: wrist Heart Rate: 85 O2 Saturation: 98 (CLOTH) Height: 5 ft 5 in Weight: 164 lb (W/O CLOTHES) Weight change since last visit: 5 lb loss Body Mass Index: 27.3 BMI Classification: Overweight Impression and Plan 1. Obstructive Sleep Apnea-Hypopnea Syndrome, severe, with good treatment compliance and good apnea control. On CPAP therapy, the patient has better sleep quality and is more rested overall. Patient states she occasionally gets dry mouth during allergy season because her nose will become congested and she sleeps with her mouth open. She otherwise has no other issues with CPAP mask use. She has significant improvement of her sleep apnea. Nasal congestion can be reduced with increasing the CPAP humidity as shown on sample device. The heated hose can be adjusted higher if condensation with higher humidity setting. Saline nasal spray obtained OTC can be used prior to CPAP to clear nasal secretions and wash off any nasal allergens to facilitate nasal breathing. In addition, a steamy shower before bed will often assist nasal drainage. Her [place] sleepiness scale is 14/24 today because she has not been sleeping well recently, only getting 4 or so hours of sleep for several nights and has an increased workload at work. She thinks this will resolve soon. Patient's apnea severity and rationale for treatment to reduce apnea, improve sleep quality and reduce cardiovascular and cerebrovascular events was reviewed. 2. Overweight, unspecified. Patient has lost weight by changing her diet and increasing her regular exercise. Currently patients BMI is 27.3. The patient's CPAP pressure range should accommodate some weight loss. Symptoms to report for additional pressure adjustment discussed. * Continue auto CPAP pressure at 11-15 cmH2O * Notify me if snoring with mask or feeling that the pressure is too much or too little * Continue to try to lose weight * Call this office if any problems using CPAP * Return for follow up in 1 year, or sooner if concerns arise Counseling Topics: Spare mask, Weight loss health impact Visit Type: In Office Time Spent with Patient (minutes): 26 Provider Statement: I spent 100% of the Face to Face Visit with the patient with greater than 50% spent counseling the patient and coordination of care.
== END 2021-08-31 09:09 | disposition home or self-care (01) ==
LOC: SC 09:08
PROVIDERS: ATTEND Nurse Practitioner Family
DX: G47.33 Obstructive sleep apnea (adult) (pediatric) (principal); E66.3 Overweight; Z68.27 Body mass index [BMI] 27.0-27.9, adult
CPT/HCPCS: 99213; G0463; 99212

== ENCOUNTER 2022-10-24 10:04 | Outpatient (CLI) | payer MEDICARE, OTHER ==
--- NOTE | 2022-10-24 10:36 | SLEEP CARE CONSULTATION ---
Information from patient questionnaire entered by Bessie Thao. I have reviewed and concur with the information entered by Bessie Thao. This document represents the service I personally performed and the decisions made by , Crys Mack ARNP. History of Present Illness Service Date and Time: 10/24/2022 1004 Previous diagnosis: Severe, Obstructive Sleep Apnea-Hypopnea Syndrome AHI: 38.7 Reason for follow up: annual (Last seen 08/2021) Equipment type: CPAP (ResMed Airsense 10, s/u 01/2018) Equipment obtained from: [employer] (Ar; getting supplies as needed) Mask style: Full face Mask brand: Resmed (AirFit F20) Backup mask available: Yes (old mask) Last cushion change: 1 month Prior sleep studies: Yes Year and Where: 2011 - [facility] Type of Sleep Study: Home sleep study HPI additional information: NARAYAN MARQUEZ was diagnosed to have severe, AHI 38.7, obstructive sleep apnea- hypopnea syndrome and returned today for CPAP therapy annual follow-up. Sleep Study - Results Type of Sleep Study: Home sleep study Prior sleep studies: Yes Year and Where: 2011 [facility] CPAP Compliance Data - Data Reviewed with Patient Average duration of nightly device use: 5 hours 35 mins Compliance rate %: 79 (171/180 days used) Current pressure setting (cmH2O): 11-15 Average residual AHI: 3.9 Central apnea: 0.2 Obstructive apnea: 0.5 Hypopnea: 1.1 Subjective Missed days of use due to: reports: travel Patient concerns: reports: other (does not turn on automatically). denies: aerophagia, mask discomfort, air blowing in eyes, mask leak noise, condensation in mask/hose, nasal congestion, dry mouth, nose, throat, epistaxis Observed to snore while using device: No Current pressure setting perceived as: comfortable On therapy, patient: reports: sleeping better, awakening more refreshed, being more awake and alert during the day, more rested overall. denies: drowsiness while driving Initial [place] Sleepiness Scale score: 3 (in 2019) Current [place] Sleepiness Scale score: 9 Allergies and Home Medications Known drug allergies: Yes (sulfa) Drug allergies reviewed: Yes Home medication list reviewed: Yes (Gabapentin 300 mg 2 at night/1 in morning) Allergy and home medication list: Allergies Sulfa (Sulfonamide Antibiotics) Allergy Review of Systems Review of systems same as previous: No (spinal injections in lumbar spine) Physical Exam Vital signs obtained and entered by: Crys Raymond NP Blood Pressure: 131/63 Cuff size: wrist (right) Heart Rate: 69 O2 Saturation: 100 Height: 5 ft 5 in Weight: 177 lb Body Mass Index: 29.4 BMI Classification: Overweight Impression and Plan 1. Obstructive Sleep Apnea-Hypopnea Syndrome, severe, with good treatment compliance and good apnea control. On CPAP therapy, the patient has better sleep quality and is more rested overall. Patient states her machine works okay except for the automatic on had to be turned off by the DME because it was causing a problem. She states she is due for a new machine coming up in January and I verified this. She may call for a prescription to update her device in January or February. She voiced understanding and agreement with plan. Patient has significant improvement of their sleep apnea and is satisfied with current CPAP therapy. Patient denies problems with oral dryness, nasal congestion, epistaxis, skin irritation or aerophagia. Patient's apnea severity and rationale for treatment to reduce apnea, improve sleep quality and reduce cardiovascular and cerebrovascular events was reviewed. 2. Overweight, unspecified. Currently patients BMI is 29.4. Obesity increases the risk of apnea, CPAP pressure requirements and overall health risks especially cardiovascular and diabetes. Thus patient is advised to continue to try to lose weight. * Continue auto CPAP pressure at 11-15 cmH2O * Update supply prescription * Notify me if snoring with mask or feeling that the pressure is too much or too little * Attempt to lose weight * Call this office if any problems using CPAP * Return for follow up in 1 year, or sooner if concerns arise Counseling Topics: Spare mask, Weight loss health impact Visit Type: In Office Time Spent with Patient (minutes): 21 Provider Statement: I spent 100% of the Face to Face Visit with the patient with greater than 50% spent counseling the patient and coordination of care.
[2022-10-24 10:41] VITALS: BP 131/63
== END 2022-10-24 10:05 | disposition home or self-care (01) ==
LOC: SC 10:04
PROVIDERS: ATTEND Nurse Practitioner Family
DX: G47.33 Obstructive sleep apnea (adult) (pediatric) (principal); E66.3 Overweight; Z68.29 Body mass index [BMI] 29.0-29.9, adult
CPT/HCPCS: 99213; G0463; 99212

== ENCOUNTER 2023-04-09 08:26 | Outpatient (CLI) | payer MEDICARE, OTHER ==
--- NOTE | 2023-04-09 08:56 | Sleep Patient Instructions ---
Sleep Center Visit Summary - Patient Visit Information Reason for Visit: 6 month follow up - Patient Instructions Additional Instructions: You were here for follow up of CPAP therapy. You will be continued on CPAP therapy with pressure at 11-15 cmH2O. You are eligible for an updated machine. I will send a prescription to your CPAP supplier and they should reach out to you once they have a new machine. Once you have the new 1 please give us a call to make your follow-up compliance visit. You should follow up with sleep care 1 month after receiving new CPAP. You may contact us sooner for any questions or concerns. - Clinic Information Contact: [facility] [address] [place] [id number] [email or web address] T: [phone]
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
[2023-04-09 09:06] VITALS: BP 126/72; O2SAT 98
== END 2023-04-09 08:27 | disposition home or self-care (01) ==
LOC: SC 08:26
PROVIDERS: ATTEND Nurse Practitioner Family
DX: G47.33 Obstructive sleep apnea (adult) (pediatric) (principal); E66.9 Obesity, unspecified; Z68.31 Body mass index [BMI] 31.0-31.9, adult
CPT/HCPCS: 99213; G0463; 99212

== ENCOUNTER 2023-06-12 12:48 | Outpatient (CLI) | payer MEDICARE, OTHER ==
--- NOTE | 2023-06-12 13:11 | Sleep Patient Instructions ---
Sleep Center Visit Summary - Patient Visit Information Reason for Visit: First compliance with new device - Patient Instructions Additional Instructions: You were here for follow up of CPAP therapy. You will be continued on CPAP therapy with pressure at 11-15 cmH2O. You should follow up with sleep care in 12 months. You may contact us sooner for any questions or concerns. - Clinic Information Contact: [facility] [address] [place] [address] [email or web address] T: [phone]
[2023-06-12 13:14] VITALS: BP 139/76; O2SAT 100
--- NOTE | 2023-06-12 13:15 | SLEEP CARE CONSULTATION ---
History of Present Illness Service Date and Time: 06/12/2023 1248 Previous diagnosis: Severe, Obstructive Sleep Apnea-Hypopnea Syndrome AHI: 38.7 Reason for follow up: first compliance after device update Equipment type: CPAP (ResMed Airsense 10, s/u 05/2023) Equipment obtained from: [employer] (Ar; getting supplies as needed) Mask style: Full face Mask brand: Resmed (AirFit F20) Backup mask available: Yes (old mask) Last cushion change: 1 month Prior sleep studies: Yes Year and Where: 2011 - [place] [facility] Type of Sleep Study: Home sleep study HPI additional information: NARAYAN MARQUEZ was diagnosed to have severe, AHI 38.7, obstructive sleep apnea- hypopnea syndrome and returned today for CPAP therapy first compliance after updating device follow-up. Sleep Study - Results Type of Sleep Study: Home sleep study Prior sleep studies: Yes Year and Where: 2011 [facility] CPAP Compliance Data - Data Reviewed with Patient Average duration of nightly device use: 6 hours 38 minutes Compliance rate %: 87 (05/07/2023-06/05/2023; days used) Current pressure setting (cmH2O): 11-15 Average residual AHI: 4.8 Central apnea: 0.9 Obstructive apnea: 0.6 Average large leak: 16.5 L/min Subjective Patient concerns: denies: aerophagia, mask discomfort, air blowing in eyes, mask leak noise, condensation in mask/hose, nasal congestion, dry mouth, nose, throat, epistaxis Observed to snore while using device: No Current pressure setting perceived as: comfortable On therapy, patient: reports: sleeping better, awakening more refreshed, being more awake and alert during the day, more rested overall. denies: drowsiness while driving Initial [place] Sleepiness Scale score: 3 (in 2019) Current [place] Sleepiness Scale score: 11 Allergies and Home Medications Known drug allergies: Yes (as listed) Drug allergies reviewed: Yes Home medication list reviewed: Yes (stopped Hydroxychoroquine) Allergy and home medication list: Allergies Sulfa (Sulfonamide Antibiotics) Allergy (Verified 04/09/23 08:29) Review of Systems Review of systems same as previous: Yes (no changes) Physical Exam Vital signs obtained and entered by: Crys Raymond NP Blood Pressure: 139/76 Cuff size: regular (right arm) Heart Rate: 71 O2 Saturation: 100 Height: 5 ft 5 in Weight: 184 lb 12.8 oz Body Mass Index: 30.7 BMI Classification: Obese Impression and Plan 1. Obstructive Sleep Apnea-Hypopnea Syndrome, severe, with good treatment compliance and good apnea control. On CPAP therapy, the patient has better sleep quality and is more rested overall. Patient states her oral dryness has improved with a new machine. She is going through all the water in her water chamber but she has a lot less dryness in her mouth. Patient has significant improvement of their sleep apnea and is satisfied with current CPAP therapy. Patient's apnea severity and rationale for treatment to reduce apnea, improve sleep quality and reduce cardiovascular and cerebrovascular events was reviewed. 2. Obesity, unspecified. Currently patients BMI is 30.7. Obesity increases the risk of apnea, CPAP pressure requirements and overall health risks especially cardiovascular and diabetes. Thus patient is advised to lose weight. * Continue auto CPAP pressure at 11-15 cmH2O * Notify me if snoring with mask or feeling that the pressure is too much or too little * Attempt to lose weight * Call this office if any problems using CPAP * Return for follow up in 12 months, or sooner if concerns arise Counseling Topics: Weight loss health impact Follow up with Sleep Care in: 1 year Visit Type: In Office Time Spent with Patient (minutes): 15 Provider Statement: I spent 100% of the Face to Face Visit with the patient with greater than 50% spent counseling the patient and coordination of care.
== END 2023-06-12 12:49 | disposition home or self-care (01) ==
LOC: SC 12:48
PROVIDERS: ATTEND Nurse Practitioner Family
DX: G47.33 Obstructive sleep apnea (adult) (pediatric) (principal); E66.9 Obesity, unspecified; Z68.30 Body mass index [BMI] 30.0-30.9, adult
CPT/HCPCS: 99212; G0463

== ENCOUNTER 2023-10-01 08:00 | Outpatient (CLI) | payer MEDICARE, OTHER ==
--- NOTE | 2023-10-01 11:40 | DEXA Report ---
PROCEDURE: Dexa Spine and/or Hip INDICATIONS: OSTEOPOROSIS TECHNIQUE: Dual energy x-ray absorptiometry (DXA) was performed on a [employer] System. Regions measur ed are the AP Spine, femoral neck, and if needed forearm. COMPARISON: DEXA exam dated 08/22/2021 FINDINGS: Lumbar Spine: Bone Mineral Density: 1.045 g/cm/cm,T score: -1.0--1.3. Previously -1.9 Left Femoral Neck: Bone Mineral Density: 0.726 g/cm/cm, T score: -2.2. Previously -2.6. Left Hip: Bone Mineral Density: 0.789 g/cm/cm,T score: -1.7. Previously -2.0 (T score greater or equal to -1.0: NORMAL) (T score from -1.1 to -2.4: OSTEOPENIA) (T score less than or equal to -2.5 to: OSTEOPOROSIS) Impression: By WHO criteria, this patient has osteoporosis. Osteopenia of the lumbar spine. Osteoporosis of the hip. Patients with diagnosis of osteoporosis or osteopenia should have regular bone mineral density assess ment. For those eligible for Medicare, routine testing is allowed once every 2 years. Testing frequ ency can be increased for patients who have rapidly progressing disease or for those who are receivin g medical therapy to restore bone mass. Reviewed by: Jennifer Morgan MD on 10/01/2023 11:39 AM PDT Approved by: Jennifer Morgan MD on 10/01/2023 11:39 AM PDT Station ID: [id number]
== END 2023-10-01 08:01 | disposition home or self-care (01) ==
LOC: DI 08:00
PROVIDERS: ATTEND Internal Medicine Rheumatology
DX: M85.89 Other specified disorders of bone density and structure, multiple sites (principal)

== ENCOUNTER 2023-11-19 07:23 | Outpatient (CLI) | payer MEDICARE, OTHER ==
[2023-11-19 07:55] LABS: BASOPHILS # (AUTO) 0.1 10^3/uL (0.0-0.1); BASOPHILS % (AUTO) 1.5 %; EOSINOPHILS # (AUTO) 0.2 10^3/uL (0.0-0.7); EOSINOPHILS % (AUTO) 3.4 %; HCT - HEMATOCRIT 38.7 % (37.0-47.0); HGB - HEMOGLOBIN 12.4 g/dL (12.0-16.0); LYMPHOCYTES # (AUTO) 1.9 10^3/uL (1.5-3.5); LYMPHOCYTES % (AUTO) 32.4 %; MEAN CORPUSCULAR HEMOGLOBIN 27.5 pg (27.0-31.0); MEAN CORPUSCULAR VOLUME 85.8 fL (81.0-99.0); MEAN PLATELET VOLUME 10.4 fL (7.9-10.8); MONOCYTES # (AUTO) 0.7 10^3/uL (0.0-1.0); MONOCYTES % (AUTO) 11.1 %; NEUTROPHILS % (AUTO) 51.4 %; PLT - PLATELET COUNT 239 10^3/uL (130-450); RED BLOOD COUNT 4.51 10^6/uL (4.20-5.40); RED CELL DISTRIBUTION WIDTH 14.9 % (12.0-15.0); WHITE BLOOD COUNT 5.9 x10^3/uL (4.8-10.8)
[2023-11-19 08:04] LABS: ALBUMIN 4.3 g/dL (3.2-5.5); ALBUMIN/GLOBULIN RATIO 1.5 (1.0-2.2); ALKALINE PHOSPHATASE 56 IU/L (42-121); ALT ALANINE AMINOTRANSFERASE 15 IU/L (10-60); AST ASPARTATE AMINOTRANSFERASE 16 IU/L (10-42); BILIRUBIN,TOTAL 0.4 mg/dL (0.2-1.0); BUN - BLOOD UREA NITROGEN 34 mg/dL (6-20); CALCIUM 9.3 mg/dL (8.5-10.3); CARBON DIOXIDE - CO2 32 mmol/L (21-32); CHLORIDE 100 mmol/L (101-111); CREATININE 1.4 mg/dL (0.6-1.3); CRP - C-REACTIVE PROTEIN < 0.5 mg/dL (<0.5); GFR - MDRD 37 (>89); GLUCOSE 117 mg/dL (74-104); POTASSIUM 3.7 mmol/L (3.5-4.5); SODIUM 139 mmol/L (135-145); TOTAL PROTEIN 7.2 g/dL (6.4-8.9)
[2023-11-19 08:20] LABS: THYROID STIMULATING HORMONE 2.23 uIU/mL (0.34-5.60)
[2023-11-19 09:52] LABS: RHEUMATOID FACTOR NEGATIVE (Negative)
== END 2023-11-19 07:24 | disposition home or self-care (01) ==
LOC: LAB 07:23
PROVIDERS: ATTEND Internal Medicine Rheumatology
DX: M25.50 Pain in unspecified joint (principal); R53.83 Other fatigue
CPT/HCPCS: 36415; 80053; 81599; 84443; 85025; 85651; 86038; 86140; 86200; 86430